=== PATIENT | female | born 1970 | race Caucasian/White ===

== ENCOUNTER 2021-07-30 11:00 | Inpatient (IN) | payer BC ==
[~2021-07-30] VITALS: Ht 157.5 cm; Wt 76.2 kg
[2021-07-30 11:46] LABS: HEMATOCRIT 47.4 % (36.0-47.0); HEMOGLOBIN 15.7 g/dl (12.0-15.5); MEAN CORPUSCULAR HEMOGLOBIN 30.1 pg (27.0-33.0); MEAN CORPUSCULAR HGB CONC 33.1 g/dl (32.0-36.5); PLATELET COUNT, AUTOMATED 322 10^3/uL (150-450); RED BLOOD COUNT 5.21 10^6/uL (4.00-5.40); WHITE BLOOD COUNT 7.3 10^3/uL (4.0-10.0)
[2021-07-30 12:14] LABS: HCG, SERUM QUALITATIVE NEGATIVE (NEGATIVE)
[2021-07-30 12:56] LABS: BLOOD UREA NITROGEN 5 MG/DL (7-18); GLUCOSE, FASTING 89 MG/DL (70-100)
[2021-07-30 12:57] LABS: ALBUMIN 4.7 GM/DL (3.2-5.2); ALT/SGPT 37 IU/L (0-32); BILIRUBIN,DIRECT 0.2 MG/DL (0.0-0.2); BILIRUBIN,TOTAL 0.8 MG/DL (0.2-1.0); CALCIUM LEVEL 9.6 MG/DL (8.5-10.1); CARBON DIOXIDE LEVEL 31 mmol/L (20-29); CHLORIDE LEVEL 103 MEQ/L (98-107); CREATININE FOR GFR 0.59 MG/DL (0.55-1.30); GLOMERULAR FILTRATION RATE > 60.0 (>58); SODIUM LEVEL 140 MEQ/L (136-145); TOTAL PROTEIN 7.8 GM/DL (6.4-8.2)
[2021-07-30 12:58] LABS: ACETAMINOPHEN LEVEL < 2.0 UG/ML (10.0-30.0); ETHYL ALCOHOL (ETHANOL) < 0.003 % (0.000-0.010); SALICYLATE LEVEL < 1.7 MG/DL (5.0-30.0); THYROID STIMULATING HORMONE 0.611 uIU/ML (0.358-3.740)
[2021-07-30 13:01] LABS: AMPHETAMINES LEVEL URINE NEGATIVE (NEGATIVE); BARBITURATES URINE NEGATIVE (NEGATIVE); BENZODIAZEPINES URINE NEGATIVE (NEGATIVE); CANNABINOIDS URINE POSITIVE (NEGATIVE); COCAINE METABOLITE URINE NEGATIVE (NEGATIVE); METHADONE URINE NEGATIVE (NEGATIVE); OPIATES URINE NEGATIVE (NEGATIVE)
[2021-07-30 13:02] LABS: PHENCYCLIDINE URINE NEGATIVE (NEGATIVE)
[2021-07-30 13:34] LABS: RSV AMPLIFICATION NEGATIVE (NEGATIVE)
[2021-07-30] MEDS ORDERED: CHLORTHALIDONE 12.5MG PER 1/2 TABLET PO ONE (17:05)
[2021-07-30] MEDS ORDERED: LORazepam 1 MG TAB PO ONE (19:40)
[2021-07-30] MEDS ORDERED: MAALOX 30 ML SUSP *UDC PO PRN (22:30)
[2021-07-30] MEDS ORDERED: MOM 30ML SUSPENSION UDC PO PRN (22:30)
[2021-07-30] MEDS ORDERED: hydrOXYzine 50 MG TAB PO PRN (22:30)
[2021-07-31] MEDS: ACETAMINOPHEN TAB 650MG DOSE (2X325MG) PO PRN (01:55)
[2021-07-31] MEDS: traZODone 50 MG TAB PO PRN (01:57)
[2021-07-31 02:49] VITALS: BP 150/79
[2021-07-31] MEDS ORDERED: IBUPROFEN 400MG TAB PO ONE ×2 (12:40→16:00)
[2021-07-31 15:45] VITALS: BP 148/99
[2021-07-31] MEDS: atenoloL 25 MG TAB PO SCH (16:18)
[2021-07-31] MEDS ORDERED: DIVALPROEX 125 MG TAB PO ONE (21:00)
[2021-07-31] MEDS ORDERED: ESCITALOPRAM OXALATE 5MG TABLET (LEXAPRO) PO ONE (21:00)
[2021-07-31] MEDS: RAMELTEON 8 MG TAB (ROZEREM) PO SCH (21:11)
[2021-08-01 06:28] VITALS: BP 179/81
[2021-08-01] MEDS: atenoloL 25 MG TAB PO SCH (09:59)
[2021-08-01 17:38] VITALS: BP 140/78
[2021-08-01] MEDS: ACETAMINOPHEN TAB 650MG DOSE (2X325MG) PO PRN (18:46)
[2021-08-01] MEDS: ESCITALOPRAM OXALATE 10 MG TAB (LEXAPRO) PO SCH (20:50)
[2021-08-01] MEDS: RAMELTEON 8 MG TAB (ROZEREM) PO SCH (20:50)
[2021-08-01] MEDS ORDERED: DIVALPROEX 250 MG TAB PO SCH (21:00)
[2021-08-02] MEDS: ACETAMINOPHEN TAB 650MG DOSE (2X325MG) PO PRN ×2 (03:37→15:33)
[2021-08-02 06:19] VITALS: BP 140/76
[2021-08-02] MEDS: atenoloL 25 MG TAB PO SCH (08:39)
[2021-08-02] MEDS: MELOXICAM (MOBIC) 7.5 MG TAB PO SCH (10:31)
[2021-08-02 17:42] VITALS: BP 147/90
[2021-08-02] MEDS: RAMELTEON 8 MG TAB (ROZEREM) PO SCH (20:22)
[2021-08-02] MEDS: DIVALPROEX 500 MG TAB PO SCH (20:22)
[2021-08-02] MEDS: ESCITALOPRAM OXALATE 10 MG TAB (LEXAPRO) PO SCH (20:22)
[2021-08-03 06:08] VITALS: BP 155/89
[2021-08-03] MEDS: atenoloL 25 MG TAB PO SCH (09:16)
[2021-08-03] MEDS: MELOXICAM (MOBIC) 7.5 MG TAB PO SCH (09:16)
[2021-08-03 16:45] VITALS: BP 132/90
[2021-08-03] MEDS: ACETAMINOPHEN TAB 650MG DOSE (2X325MG) PO PRN (16:49)
[2021-08-03] MEDS: RAMELTEON 8 MG TAB (ROZEREM) PO SCH (21:36)
[2021-08-03] MEDS: ESCITALOPRAM OXALATE 10 MG TAB (LEXAPRO) PO SCH (21:36)
[2021-08-03] MEDS: DIVALPROEX 500 MG TAB PO SCH (21:36)
[2021-08-03] MEDS: traZODone 50 MG TAB PO PRN (23:12)
[2021-08-04 06:54] VITALS: BP 179/84
[2021-08-04] MEDS: DIVALPROEX 250 MG TAB PO SCH (09:59)
[2021-08-04] MEDS: MELOXICAM (MOBIC) 7.5 MG TAB PO SCH (10:00)
[2021-08-04] MEDS: atenoloL 25 MG TAB PO SCH (10:00)
[2021-08-04] MEDS: RAMELTEON 8 MG TAB (ROZEREM) PO SCH (20:56)
[2021-08-04] MEDS: DIVALPROEX 500 MG TAB PO SCH (20:56)
[2021-08-04] MEDS: ESCITALOPRAM OXALATE 10 MG TAB (LEXAPRO) PO SCH (20:56)
[2021-08-04] MEDS: traZODone 50 MG TAB PO PRN (23:01)
[2021-08-05 06:37] VITALS: BP 147/98
[2021-08-05] MEDS ORDERED: DIVA250T67 PO (09:38)
[2021-08-05] MEDS ORDERED: MELO7.5T35 PO (09:38)
[2021-08-05] MEDS ORDERED: ATEN25TA PO (09:38)
[2021-08-05] MEDS ORDERED: LEXA1TAB PO (09:38)
[2021-08-05] MEDS ORDERED: RAME8TAB2 PO (09:38)
[2021-08-05] MEDS: MELOXICAM (MOBIC) 7.5 MG TAB PO SCH (10:00)
[2021-08-05] MEDS: DIVALPROEX 250 MG TAB PO SCH (10:00)
[2021-08-05 10:10] VITALS: BP 130/84
[2021-08-05] MEDS: atenoloL 25 MG TAB PO SCH (10:10)
== END 2021-08-05 14:31 | disposition home or self-care (01) | DRG 753 ==
LOC: M ED 11:00 → M ED INP 22:27 → M PSY 07-31 01:25
PROVIDERS: ADMIT Psychiatry & Neurology Psychiatry; ATTEND Psychiatry & Neurology Psychiatry
DX: F31.2 Bipolar disorder, current episode manic severe with psychotic features (principal); U07.1 COVID-19; R45.851 Suicidal ideations; R00.0 Tachycardia, unspecified; F10.10 Alcohol abuse, uncomplicated; F12.90 Cannabis use, unspecified, uncomplicated; F43.0 Acute stress reaction; Z79.899 Other long term (current) drug therapy; Z88.0 Allergy status to penicillin; Z88.8 Allergy status to other drugs, medicaments and biological substances; I10 Essential (primary) hypertension

== ENCOUNTER → 2022-06-24 | Outpatient (REF) ==
[~2022-06-24] MED LIST: ATEN25TA PO; DIVA250T67 PO; LEXA1TAB PO; MELO7.5T35 PO; RAME8TAB2 PO
== END ==
LOC: M PLALAB 12:26
PROVIDERS: ATTEND Internal Medicine
DX: R52 Pain, unspecified (principal)